=== PATIENT | female | born 1995 | race Caucasian/White ===

== ENCOUNTER 2016-12-05 17:54 | Emergency (ER) | payer MEDICAID, OTHER ==
[2016-12-05 19:07] VITALS: BP 95/65
--- NOTE | 2016-12-05 23:51 | UC ---
Complaint Female HPI - HPI Summary HPI Summary: PATIENT ARRIVES TO ED WITH RIGHT SIDED FLANK PAIN X 2 DAYS WITH ASSOCIATED 102.3 FEVER. SHE HAD AN UNCOMPLICATED WITH 21 DAYS AGO. SINCE THEN, SHE DENIES PAIN, FEVER OR DISCHARGE. TODAY SHE DENIES URINARY SYMPTOMS OR HISTORY OF KIDNEY STONE. DENIES POSSIBILITY OF STD. SHE DENIES OTHER SYMPTOMS SUCH NECK PAIN, BACK PAIN, ABDOMINAL PAIN OR N/V/C/D. PATIENT IS OTHERWISE HEALTHY AND TAKES NO MEDICATIONS. SHE IS CURRENTLY BREAST FEEDING. - History Of Current Complaint Chief Complaint: UCGeneralIllness Stated Complaint: FEVER,CHILLS,RIGHT SIDE PAIN (HAS -NURSING) Time Seen by Provider: 12/05/16 19:25 Hx Obtained From: Patient Hx Last Menstrual Period: delivered 21 days ago ?: No Onset/Duration: Gradual Onset Timing: Constant Severity Initially: Moderate Severity Currently: Moderate Pain Intensity: 5 Pain Scale Used: 0-10 Numeric Character: Sharp Aggravating Factor(s): Nothing Alleviating Factor(s): Nothing Associated Signs And Symptoms: Positive: Fever, Back Pain - Risk Factors Ectopic Risk Factor: Negative Ovarian Torsion Risk Factor: Reproductive Age - Allergies/Home Medications Allergies/Adverse Reactions: Allergies Allergy/AdvReac Type Severity Reaction Status Date / Time No Known Allergies Allergy Verified 12/05/16 19:06 Home Medications: Home Medications Acetaminophen [Acetaminophen Extra Stren] 1,000 mg PO PRN 12/05/16 [History] Ibuprofen [Ibuprofen 200 MG] 6,000 mg PO PRN 12/05/16 [History] Sertraline HCl [Zoloft] 50 mg PO DAILY 12/05/16 [History Confirmed 12/05/16] PMH/Surg Hx/FS Hx/Imm Hx Previously Healthy: Yes Psychological History Of: Reports: Anxiety - Surgical History Surgical History: None - Family History Known Family History: Positive: Other - anxiety - Social History Occupation: Unemployed Lives: With Family Alcohol Use: Rare Substance Use Type: None Smoking Status (MU): Light Every Day Tobacco Smoker Type: Cigarettes Amount Used/How Often: 1/2 PPD Length of Time of Smoking/Using Tobacco: started at age 17 Have You Smoked in the Last Year: Yes Household Exposure Type: Cigarettes Review of Systems Constitutional: Fever Skin: Negative Eyes: Negative Respiratory: Negative Cardiovascular: Negative Gastrointestinal: Other - FLANK PAIN Genitourinary: Negative Motor: Negative Neurological: Negative Psychological: Negative All Other Systems Reviewed And Are Negative: Yes Physical Exam Triage Information Reviewed: Yes Appearance: Well-Appearing, No Pain Distress, Well-Nourished Vital Signs: Initial Vital Signs Temp 98.7 F 12/05/16 19:00 Pulse 90 12/05/16 19:00 Resp 14 12/05/16 19:00 BP 95/65 12/05/16 19:00 Pulse Ox 100 12/05/16 19:00 Vital Signs Reviewed: Yes Eye Exam: Normal Eyes: Positive: Conjunctiva Clear ENT Exam: Normal ENT: Positive: Normal ENT inspection, Hearing grossly normal, Pharynx normal Dental: Positive: Percussion Tenderness @ Neck exam: Normal Neck: Positive: Supple Respiratory Exam: Normal Respiratory: Positive: Chest non-tender Cardiovascular Exam: Normal Cardiovascular: Positive: RRR Abdominal Exam: Normal, Other - TENDERNESS OVER RIGHT FLANK Abdomen Description: Positive: CVA Tenderness (R), Guarding Musculoskeletal Exam: Normal Musculoskeletal: Positive: Strength Intact, ROM Intact Neurological Exam: Normal Psychological: Positive: Normal Response To Family Skin Exam: Normal Complaint Female Dx - Course Course Of Treatment: PATIENT IS TREATED FOR UTI. LEUKS, WBC AND RBC SEEN IN URINE. PATIENT DENIES URINARY SXS BUT ENDORSES RIGHT FLANK PAIN WHICH RADIATES TO THE GROIN. DENIES HX OF KIDNEY STONES. GIVEN KEFLEX D/T PATIENT BREAST FEEDING. CONSULTED WITH DR. ARLINE CARL. - Differential Dx/Diagnosis Differential Diagnosis/HQI/PQRI: Appendicitis, Renal Colic, Ureteral Stone, Urinary Tract Infection Provider Diagnoses: UTI Discharge - Discharge Plan Condition: Stable Disposition: HOME Prescriptions: Cephalexin CAP* [Keflex CAP*] 500 mg PO TID #30 cap MDD 3 Patient Education Materials: Acute Pyelonephritis (ED) Referrals: Sophia Hercules MD [Primary Care Provider] - Additional Instructions: Follow up with PCP this week regarding your symptoms. If symptoms fail to improve or become worse, come back to UC or go to ED immediately. Fever, worsening side or back pain, nausea or vomiting or urinary symptoms, come back to UC or go to ED immediately. Take Keflex three times daily for 10 days. Drink plenty of fluids.
== END 2016-12-05 19:50 | disposition home or self-care (01) ==
LOC: UCCORT 17:54
DX: N39.0 Urinary tract infection, site not specified (principal); F41.9 Anxiety disorder, unspecified; F17.210 Nicotine dependence, cigarettes, uncomplicated
CPT/HCPCS: 81003; 87077; 87086; 87186; 99212; G0463